=== PATIENT | male | born 1985 | race Caucasian/White ===

== ENCOUNTER 2017-08-16 11:42 | Emergency (ER) | payer BC ==
[2017-08-16] MEDS ORDERED: Albuterol 0.083% 2.5 MG/3 ML Neb Soln NEB ONE (11:59)
--- NOTE | 2017-08-16 12:15 | EDM.PDOC ---
ED HPI GENERAL MEDICAL PROBLEM - General Chief Complaint: Respiratory Problem Stated Complaint: SOB Time Seen by Provider: 08/16/17 12:00 Source of Information: Reports: Patient History Limitations: Reports: No Limitations - History of Present Illness INITIAL COMMENTS - FREE TEXT/NARRATIVE: History of present illness: [32-year-old male presenting with complaints of shortness of breath. Patient indicates he was recently treated for bronchitis and had received an inhaler as well as some steroids and felt briefly better but now he is finding it difficult to get a deep breath and he feels like he is not moving good air.] Review of systems: As per history of present illness and below otherwise all systems reviewed and negative. Past medical history: As per history of present illness and as reviewed below otherwise noncontributory. Surgical history: As per history of present illness and as reviewed below otherwise noncontributory. Social history: No reported history of drug or alcohol abuse. Family history: As per history of present illness and as reviewed below otherwise noncontributory. Physical exam: HEENT: Atraumatic, normocephalic, pupils reactive, negative for conjunctival pallor or scleral icterus, mucous membranes moist, throat clear, neck supple, nontender, trachea midline. Lungs: Diminished throughout with a mild end expiratory wheeze, breath sounds equal bilaterally, chest nontender. Heart: S1S2, regular, negative for clicks, rubs, or JVD. Abdomen: Soft, nondistended, nontender. Negative for masses or hepatosplenomegaly. Negative for costovertebral tenderness. Pelvis: Stable nontender. Genitourinary: Deferred. Rectal: Deferred. Extremities: Atraumatic, negative for cords or calf pain. Neurovascular unremarkable. Neuro: Awake, alert, oriented. Cranial nerves II through XII unremarkable. Cerebellum unremarkable. Motor and sensory unremarkable throughout. Exam nonfocal. Diagnostics: [BC, CMP, chest x-ray] Therapeutics: [Med-Neb] Impression: [Bronchitis] Plan: [Inhaler, continue antibiotics already prescribed] Definitive disposition and diagnosis as appropriate pending reevaluation and review of above. Throat Pain Score (Numeric/FACES): 3 - Related Data Allergies Allergy/AdvReac Type Severity Reaction Status Date / Time No Known Allergies Allergy Verified 08/16/17 12:00 Home Meds: Home Meds Sertraline HCl [Zoloft] 50 mg PO DAILY 08/16/17 [History] Past Medical History - Past Health History Medical/Surgical History: Denies Medical/Surgical History Psychiatric History: Reports: Depression - Infectious Disease History Infectious Disease History: Reports: Chicken Pox Social & Family History - Family History Family Medical History: Noncontributory - Tobacco Use Smoking Status *Q: Never Smoker - Alcohol Use Days Per Week of Alcohol Use: 0 - Recreational Drug Use Recreational Drug Use: Yes Drug Use in Last 12 Months: Yes Recreational Drug Type: Reports: Marijuana/Hashish Recreational Drug Use Frequency: Socially ED ROS GENERAL - Review of Systems Review Of Systems: See Below (History of present illness) ED EXAM, GENERAL - Physical Exam Exam: See Below (See history of present illness) Course - Vital Signs Last Recorded V/S: Last Vital Signs Temp 36.5 C 08/16/17 11:56 Pulse 101 H 08/16/17 11:56 Resp 18 08/16/17 11:56 BP 165/102 H 08/16/17 11:56 Pulse Ox 95 08/16/17 11:56 - Orders/Labs/Meds Orders: Active Orders 24 hr Category Date Time Status RT Aerosol Therapy [RC] ASDIRECTED Care 08/16/17 11:59 Ordered Chest 2V [CR] Stat Exams 08/16/17 11:56 Ordered methylPREDNISolone Sod Succ [Solu-MEDROL] Med 08/16/17 13:09 Once 125 mg IVPUSH ONETIME ONE Labs: Laboratory Tests 08/16/17 08/16/17 Range/Units 12:11 12:11 WBC 9.49 (4.0-11.0) K/uL RBC 4.87 (4.50-5.90) M/uL Hgb 15.3 (13.0-17.0) g/dL Hct 44.0 (38.0-50.0) % MCV 90.3 (80.0-98.0) fL MCH 31.4 (27.0-32.0) pg MCHC 34.8 (31.0-37.0) g/dL RDW Std Deviation 40.9 (28.0-62.0) fl RDW Coeff of [place] 13 (11.0-15.0) % Plt Count 214 (150-400) K/uL MPV 8.70 (7.40-12.00) fL Neut % (Auto) 75.9 (48.0-80.0) % Lymph % (Auto) 19.4 (16.0-40.0) % [place] % (Auto) 4.3 (0.0-15.0) % Eos % (Auto) 0.2 (0.0-7.0) % Baso % (Auto) 0.2 (0.0-1.5) % Neut # (Auto) 7.2 H (1.4-5.7) K/uL Lymph # (Auto) 1.8 (0.6-2.4) K/uL [place] # (Auto) 0.4 (0.0-0.8) K/uL Eos # (Auto) 0.0 (0.0-0.7) K/uL Baso # (Auto) 0.0 (0.0-0.1) K/uL Nucleated RBC % 0.0 /100WBC Nucleated RBCs # 0 K/uL Sodium 140 (136-146) mmol/L Potassium 3.8 (3.5-5.1) mmol/L Chloride 108 (98-110) mmol/L Carbon Dioxide 22 (21-31) mmol/L BUN 13 (6.0-23.0) mg/dL Creatinine 0.9 (0.6-1.5) mg/dL Est Cr Clr Drug Dosing 123.92 mL/min Estimated GFR (MDRD) > 60.0 ml/min Glucose 106 (60-110) mg/dL Calcium 9.1 (8.8-10.8) mg/dL Total Bilirubin 0.3 (0.1-1.5) mg/dL AST 22 (5-40) IU/L ALT 18 (8-54) IU/L Alkaline Phosphatase 89 (40-150) Total Protein 7.3 (6.0-8.0) g/dL Albumin 4.2 (3.5-5.0) g/dL Globulin 3.1 (2.0-3.5) g/dL Albumin/Globulin Ratio 1.4 (1.3-2.8) Meds: Medications Discontinued Medications Generic Name Dose Route Start Last Admin Trade Name Freq PRN Reason Stop Dose Admin Albuterol 2.5 mg 08/16/17 11:59 08/16/17 12:15 Proventil Neb Soln NEB 08/16/17 12:00 2.5 mg ONETIME ONE Administration Departure - Departure Time of Disposition: 13:10 Disposition: Home, Self-Care 01 Condition: Good Clinical Impression: Bronchitis - Discharge Information Referrals: PCP,None [Primary Care Provider] - Forms: ED Department Discharge - My Orders Last 24 Hours: My Active Orders 08/16/17 11:56 Chest 2V [CR] Stat 08/16/17 11:59 RT Aerosol Therapy [RC] ASDIRECTED 08/16/17 13:09 methylPREDNISolone Sod Succ [Solu-MEDROL] 125 mg IVPUSH ONETIME ONE - Assessment/Plan Last 24 Hours: My Active Orders 08/16/17 11:56 Chest 2V [CR] Stat 08/16/17 11:59 RT Aerosol Therapy [RC] ASDIRECTED 08/16/17 13:09 methylPREDNISolone Sod Succ [Solu-MEDROL] 125 mg IVPUSH ONETIME ONE
[2017-08-16 12:48] LABS: CHLORIDE,CL 108 mmol/L (98-110); SODIUM,NA 140 mmol/L (136-146)
[2017-08-16] MEDS ORDERED: methylPREDNISolone Sodium Succinate 125 MG/2 ML SDV IVPUSH ONE (13:09)
--- NOTE | 2017-08-16 13:18 | CR ---
EXAMINATION: Two-view chest (PA and Lateral views). HISTORY: Shortness of breath. FINDINGS: The trachea is midline. The cardiomediastinal silhouette is within normal limits. No pulmonary infilt rates, effusions or pneumothorax. Osseous structures appear unremarkable. IMPRESSION: No acute cardiopulmonary process.
[2017-08-16 13:48] VITALS: BP 131/92
== END 2017-08-16 13:41 | disposition home or self-care (01) ==
LOC: MW.ED 11:42
DX: J40 Bronchitis, not specified as acute or chronic (principal); F32.9 Major depressive disorder, single episode, unspecified; Z79.899 Other long term (current) drug therapy
CPT/HCPCS: 36415; 71020; 80053; 85025; 94640; 96374; 99285; J2930; 99284

== ENCOUNTER 2018-03-20 13:40 | Emergency (ER) | payer BC ==
--- NOTE | 2018-03-20 13:57 | EDM.PDOC ---
ED HPI GENERAL MEDICAL PROBLEM - General Chief Complaint: Neck Problem Stated Complaint: NECK PAIN Time Seen by Provider: 03/20/18 13:52 - History of Present Illness INITIAL COMMENTS - FREE TEXT/NARRATIVE: HISTORY AND PHYSICAL: History of present illness: The patient is a 32-year-old male who presents with complaints of progressing neck pain for which she was seen yesterday in the family practice clinic by Dr. Aleman. According to Dr. Aleman, Y contacted in the clinic about this patient, the patient presented yesterday with some pain with swallow and swelling of his neck which he was concerned about and Dr. Aleman performed a TSH and free T4 which I reviewed and are within normal limits. He was scheduled to have a repeat ultrasound of his soft tissue neck and a barium swallow. Patient had in ultrasound performed of his neck on September 11, 2017 which demonstrated an unremarkable thyroid gland and normal color Doppler flow. Dr. Aleman felt that that should be repeated as he has had persistent swelling and concerns about it. Patient presented to triage stating that his neck pain from yesterday worsened and he wanted repeat evaluation. The patient tells me on my personal evaluation that in the past when he had the next swelling and had evaluation in August he did not have any pain. He says the pain that he is experiencing is in the left side of his anterior neck and it started on Sunday, 3 days ago. He said he had it yesterday when he saw Dr. Aleman but it seems to be worse today. He has no trouble speaking or swallowing food but he says that there is discomfort when he swallows food. He says that because of the pain he has not had much of an appetite. He does not feel like food gets stuck there currently but he has had that once or twice in the past but did not need evaluation. He has not had systemic complaints of fever chills oropharyngeal swelling sinus congestion or drainage or abdominal pain vomiting or diarrhea. He does not feel short of breath or have any chest pain. Patient says that there is no specific discomfort with movement of his neck. He does not feel like he has had any voice changes. Review of systems: As per history of present illness and below otherwise all systems reviewed and negative. Past medical history: As per history of present illness and as reviewed below otherwise noncontributory. Surgical history: As per history of present illness and as reviewed below otherwise noncontributory. Social history: No reported history of drug or alcohol abuse. Family history: As per history of present illness and as reviewed below otherwise noncontributory. Physical exam: General: Well-developed well-nourished male who is nontoxic and vital signs are reviewed by me. He ambulated into the ED without distress. He speaks clearly without breathlessness hoarseness or muffled voice HEENT: Atraumatic, normocephalic, pupils reactive, negative for conjunctival pallor or scleral icterus, mucous membranes moist, throat clear of exudates but there is posterior oropharyngeal erythema, uvula is midline, there is no discrete cervical adenopathy or nuchal rigidity,, neck supple, there is no gross thyroid enlargement, trachea midline. There is normal movement of the anatomy with swallow. There is no discrete SCM tenderness on palpation or with engagement of the musculature turning head side to side. There is soft tissue tenderness in the triangle anterior to the SCM and lateral to the trachea and midline but no specific masses are appreciated here. Lungs: Clear to auscultation, breath sounds equal bilaterally, chest nontender. No wheezing or stridor is appreciated Heart: S1S2, regular, rate and rhythm no overt murmurs Abdomen: Soft, nondistended, nontender. NABS Pelvis: Deferred Genitourinary: Deferred. Rectal: Deferred. Extremities: Atraumatic, negative for cords or calf pain. Neurovascular unremarkable. Neuro: Awake, alert, oriented. Cranial nerves II through XII unremarkable. Cerebellum unremarkable. Motor and sensory unremarkable throughout. Exam nonfocal. Diagnostics: CBC CMP rapid strep lactic acid CT scan of the soft tissue neck Therapeutics: IV, Toradol, Viscous Lidocaine I will advise the patient to continue his outpatient workup with the clinic including his barium swallow and neck ultrasound that are scheduled. Impression: Left anterior neck pain/odynophagia etiology unclear stable Definitive disposition and diagnosis as appropriate pending reevaluation and review of above. Left Neck Pain Score (Numeric/FACES): 6 - Related Data Allergies Allergy/AdvReac Type Severity Reaction Status Date / Time No Known Allergies Allergy Verified 03/20/18 13:58 Home Meds: Home Meds . [No Known Home Meds] 03/20/18 [History] Past Medical History - Past Health History Medical/Surgical History: Denies Medical/Surgical History Psychiatric History: Reports: Depression - Infectious Disease History Infectious Disease History: Reports: Chicken Pox Social & Family History - Family History Family Medical History: Noncontributory ED ROS GENERAL - Review of Systems Review Of Systems: ROS reveals no pertinent complaints other than HPI. ED EXAM, GENERAL - Physical Exam Exam: See Below (See dictation) Course - Vital Signs Last Recorded V/S: Last Vital Signs Temp 36.6 C 03/20/18 13:53 Pulse 71 03/20/18 13:53 Resp 18 03/20/18 13:53 BP 145/90 H 03/20/18 13:53 Pulse Ox 97 03/20/18 13:53 - Orders/Labs/Meds Orders: Active Orders 24 hr Category Date Time Status CULTURE STREP A CONFIRMATION [] Stat Lab 03/20/18 15:00 Results STREP SCRN A RAPID W CULT CONF [] Stat Lab 03/20/18 15:00 Ordered Sodium Chloride 0.9% [Saline Flush] Med 03/20/18 14:09 Active 10 ml FLUSH ASDIRECTED PRN Sodium Chloride 0.9% [Saline Flush] Med 03/20/18 14:09 Active 2.5 ml FLUSH ASDIRECTED PRN Saline Lock Insert [OM.PC] Stat Oth 03/20/18 14:09 Ordered Medication Orders Sodium Chloride (Saline Flush) 10 ml FLUSH ASDIRECTED PRN PRN Reason: Keep Vein Open Last Admin: 03/20/18 14:54 Dose: 10 ml Sodium Chloride (Saline Flush) 2.5 ml FLUSH ASDIRECTED PRN PRN Reason: Keep Vein Open Last Admin: 03/20/18 14:54 Dose: 2.5 ml Labs: Laboratory Tests 03/20/18 03/20/18 03/20/18 Range/Units 14:09 14:24 14:24 WBC 4.41 (4.0-11.0) K/uL RBC 4.96 (4.50-5.90) M/uL Hgb 15.5 (13.0-17.0) g/dL Hct 43.8 (38.0-50.0) % MCV 88.3 (80.0-98.0) fL MCH 31.3 (27.0-32.0) pg MCHC 35.4 (31.0-37.0) g/dL RDW Std Deviation 39.7 (28.0-62.0) fl RDW Coeff of Tyler 13 (11.0-15.0) % Plt Count 210 (150-400) K/uL MPV 9.60 (7.40-12.00) fL Neut % (Auto) 58.8 (48.0-80.0) % Lymph % (Auto) 34.9 (16.0-40.0) % [place] % (Auto) 4.5 (0.0-15.0) % Eos % (Auto) 1.6 (0.0-7.0) % Baso % (Auto) 0.2 (0.0-1.5) % Neut # (Auto) 2.6 (1.4-5.7) K/uL Lymph # (Auto) 1.5 (0.6-2.4) K/uL [place] # (Auto) 0.2 (0.0-0.8) K/uL Eos # (Auto) 0.1 (0.0-0.7) K/uL Baso # (Auto) 0.0 (0.0-0.1) K/uL Nucleated RBC % 0.0 /100WBC Nucleated RBCs # 0 K/uL Lactate 0.9 (0.20-2.00) mmol/L Sodium 140 (136-148) mmol/L Potassium 4.1 (3.5-5.1) mmol/L Chloride 104 (98-107) mmol/L Carbon Dioxide 27.9 (21.0-32.0) mmol/L BUN 13 (7.0-18.0) mg/dL Creatinine 0.9 (0.8-1.3) mg/dL Est Cr Clr Drug Dosing 123.92 mL/min Estimated GFR (MDRD) > 60.0 ml/min Glucose 93 (74-106) mg/dL Calcium 9.2 (8.5-10.1) mg/dL Total Bilirubin 0.3 (0.2-1.0) mg/dL AST 21 (15-37) IU/L ALT 21 (14-63) IU/L Alkaline Phosphatase 87 (46-116) U/L Total Protein 7.7 (6.4-8.2) g/dL Albumin 4.7 (3.4-5.0) g/dL Globulin 3.0 (2.0-3.5) g/dL Albumin/Globulin Ratio 1.6 (1.3-2.8) Meds: Medications Generic Name Dose Route Start Last Admin Trade Name Isabel PRN Reason Stop Dose Admin Sodium Chloride 10 ml 03/20/18 14:09 03/20/18 14:54 Saline Flush FLUSH 10 ml ASDIRECTED PRN Administration Keep Vein Open Sodium Chloride 2.5 ml 03/20/18 14:09 03/20/18 14:54 Saline Flush FLUSH 2.5 ml ASDIRECTED PRN Administration Keep Vein Open Discontinued Medications Generic Name Dose Route Start Last Admin Trade Name Freq PRN Reason Stop Dose Admin Iopamidol 80 ml 03/20/18 14:34 03/20/18 14:35 Isovue Multipack-370 (76%) IVPUSH 03/20/18 14:35 80 ml ONETIME STA Administration Ketorolac Tromethamine 30 mg 03/20/18 14:10 03/20/18 14:53 Toradol IVPUSH 03/20/18 14:11 30 mg ONETIME ONE Administration Lidocaine HCl 15 ml 03/20/18 14:11 03/20/18 14:54 Xylocaine 2% Viscous PO 03/20/18 14:12 15 ml ONETIME ONE Administration Departure - Departure Time of Disposition: 15:32 Disposition: Home, Self-Care 01 Condition: Good Clinical Impression: Neck pain on left side, Odynophagia - Discharge Information Referrals: PCP,None [Primary Care Provider] - Forms: ED Department Discharge Additional Instructions: The following information is given to patients seen in the emergency department who are being discharged to home. This information is to outline your options for follow-up care. We provide all patients seen in our emergency department with a follow-up referral. The need for follow-up, as well as the timing and circumstances, are variable depending upon the specifics of your emergency department visit. If you don't have a primary care physician on staff, we will provide you with a referral. We always advise you to contact your personal physician following an emergency department visit to inform them of the circumstance of the visit and for follow-up with them and/or the need for any referrals to a consulting specialist. The emergency department will also refer you to a specialist when appropriate. This referral assures that you have the opportunity for followup care with a specialist. All of these measure are taken in an effort to provide you with optimal care, which includes your followup. Under all circumstances we always encourage you to contact your private physician who remains a resource for coordinating your care. When calling for followup care, please make the office aware that this follow-up is from your recent emergency room visit. If for any reason you are refused follow-up, please contact the [facility] emergency department at and ask to speak to the emergency department charge nurse. [facility] Primary care- Internal Medicine and Family [address] [address] Push fluids eat soft diet and continue to monitor your symptoms. Please keep your scheduled follow-up testing and appointments and return to ER as needed and as discussed - My Orders Last 24 Hours: My Active Orders 03/20/18 14:09 Sodium Chloride 0.9% [Saline Flush] 10 ml FLUSH ASDIRECTED PRN Sodium Chloride 0.9% [Saline Flush] 2.5 ml FLUSH ASDIRECTED PRN Saline Lock Insert [OM.PC] Stat 03/20/18 15:00 CULTURE STREP A CONFIRMATION [RM] Stat STREP SCRN A RAPID W CULT CONF [RM] Stat - Assessment/Plan Last 24 Hours: My Active Orders 03/20/18 14:09 Sodium Chloride 0.9% [Saline Flush] 10 ml FLUSH ASDIRECTED PRN Sodium Chloride 0.9% [Saline Flush] 2.5 ml FLUSH ASDIRECTED PRN Saline Lock Insert [OM.PC] Stat 03/20/18 15:00 CULTURE STREP A CONFIRMATION [RM] Stat STREP SCRN A RAPID W CULT CONF [RM] Stat
[2018-03-20] MEDS ORDERED: Sodium Chloride 0.9% 2.5 ML Syringe FLUSH PRN (14:09)
[2018-03-20] MEDS ORDERED: Sodium Chloride 0.9% 10 ML Syringe FLUSH PRN (14:09)
[2018-03-20] MEDS ORDERED: Ketorolac 30 MG/ML SDV IVPUSH ONE (14:10)
[2018-03-20] MEDS ORDERED: Lidocaine 2% Viscous Solution 15 ML Cup PO ONE (14:11)
[2018-03-20] MEDS ORDERED: Iopamidol 755 MG/ML 500 ML Multipack Bottle IVPUSH STA ×2 (14:34→14:45)
[2018-03-20 14:59] LABS: CHLORIDE,CL 104 mmol/L (98-107); SODIUM,NA 140 mmol/L (136-148)
--- NOTE | 2018-03-20 15:04 | CT ---
EXAMINATION: CT soft tissue neck with contrast HISTORY: Pain COMPARISON: None TECHNIQUE: Axial CT images obtained through the neck following the administration of 80 mL of Isovue- 370 in the right antecubital fossa. Coronal and sagittal reconstructions obtained. FINDINGS: The pharyngeal mucosal structures appear normal. The hypopharynx and larynx are normal. The submandibular, parotid, and thyroid glands appear normal. There is no abnormal mass within the regio n of concern. No cervical lymphadenopathy. No soft tissue swelling or edema. Visualized paranasal sin uses and mastoid air cells are clear. Orbits and globes are symmetric. Visualized intracranial compar tments are normal. The lung apices are clear. No suspicious osseous abnormalities identified. IMPRESSION: 1. Grossly unremarkable CT soft tissue neck.
[2018-03-20 15:52] VITALS: BP 132/93
== END 2018-03-20 15:49 | disposition home or self-care (01) ==
LOC: MW.ED 13:40
DX: M54.2 Cervicalgia (principal); R13.10 Dysphagia, unspecified
CPT/HCPCS: 36415; 70491; 80053; 83605; 85025; 87081; 87880; 96374; 99284; A9270; J1885; Q9967